=== PATIENT | male | born 1950 | race African-American/Black ===

== ENCOUNTER 2017-06-08 15:06 | Emergency (ER) | payer MEDICARE ==
--- NOTE | 2017-06-08 17:42 | XRay Report ---
FINAL REPORT EXAM: XR CHEST 1V AP HISTORY: SOB TECHNIQUE: AP portable view of the chest PRIORS: None. FINDINGS: Lines, tubes, and devices: Median sternotomy wires and surgical clips are noted. Plate and screw device is in the lower cervical spine are present. Lungs and pleura: Trachea is normal in position. Lungs are clear of infiltrate, pleural effusion, vascular congestion, or pneumothorax. Cardiomediastinal silhouette: Cardiac and mediastinal silhouettes are unremarkable. Calcification of the aortic arch is noted. Other: Bony structures are intact. IMPRESSION: No acute cardiopulmonary process seen.
[2017-06-08] MEDS ORDERED: DUONEB *Not for PRN Use IH ONE (18:08)
[2017-06-08 18:09] LABS: Hematocrit 43.4 % (35.5-45.6); Hemoglobin 14.9 gm/dl (11.8-15.2); Mean Corpuscular HGB Conc 34 % (32-34); Mean Corpuscular Hemoglobin 30 pg (28-32); Mean Corpuscular Volume 86 fl (84-94); Platelet Count 130 K/mm3 (140-440); Red Blood Count 5.04 M/mm3 (3.65-5.03); Red Cell Distribution Width 14.5 % (13.2-15.2)
[2017-06-08 18:28] LABS: Alanine Aminotransferase 32 units/L (7-56); Albumin 3.7 g/dL (3.9-5); BUN/Creatinine Ratio 18; Blood Urea Nitrogen 18 mg/dL (9-20); Calcium 8.7 mg/dL (8.4-10.2); Hemolysis Index 19
[2017-06-08 18:51] LABS: Band Neutrophils # (Manual) 0.1 K/mm3; Basophils % (Manual) 0 % (0.0-1.8); Eosinophils % (Manual) 0 % (0.0-4.3); Platelet Clumps Rare; Platelet Estimate Consistent w Auto; RBC Morphology Normal; Total Cells Counted 100
--- NOTE | 2017-06-08 19:00 | Emergency Department Report ---
ED Fall HPI - General Chief Complaint: Fall Stated Complaint: FALL Time Seen by Provider: 06/08/17 16:15 Source: family, EMS Mode of arrival: Stretcher - History of Present Illness Initial Comments: THE PATIENT FELL IN THE GARAGE. FAMILY MEMBERS NOTICED IT LATER IN THE EVENING AND ALSO TODAY. THERE WAS also SOME BIT OF BLEEDING FROM THE occiPITAL AREA OF THE HEAD. PATIENT WAS ALSO COMPLAINING OF A HEADACHE OF MILD TO MODERATE INTENSITY AND NONRADIATING WITH NO AGGRAVATING OR RELIEVING FACTOR. PATIENT HAS ALSO BEEN COMPLAINING OF SOME SHORTNESS OF BREATH AND COUGH WHICH IS OCCASIONALLY PRODUCTIVE. HE IS BEEN IN CONTACT WITH INDIVIDUALS THAT HAVE HAD FLULIKE SYMPTOMS recently. The patient did have a fever about 3 days ago. His flulike symptoms started about 3 days ago. He has no neck stiffness. History was limited by the patient's language difficulty however translation was done by his grandson. Patient is not exactly sure of the nature of his fall and is unsure whether he actually lost consciousness. MD Complaint: fall - Related Data Previous Rx's Medication Instructions Recorded Last Taken Type ALBUTEROL Inhaler [ProAir HFA 2 puff IH QID PRN #1 inhalation 06/08/17 Unknown Rx Inhaler] Amoxicillin/Potassium Clav 1 each PO BID 10 Days #20 tablet 06/08/17 Unknown Rx [Augmentin 875-125 Tablet] Allergies Allergy/AdvReac Type Severity Reaction Status Date / Time No Known Allergies Allergy Unverified 06/08/17 16:01 ED Review of Systems ROS: Stated complaint: FALL Other details as noted in HPI Comment: All other systems reviewed and negative ED Past Medical Hx - Past Medical History Hx Hypertension: Yes Hx CVA: Yes (R sided deficits) Additional medical history: hyperlipidemia - Surgical History Hx Open Heart Surgery: Yes Additional Surgical History: neck sx - Social History Smoking Status: Never Smoker Substance Use Type: None - Medications Home Medications: Home Medications Medication Instructions Recorded Confirmed Last Taken Type ALBUTEROL Inhaler [ProAir HFA 2 puff IH QID PRN #1 inhalation 06/08/17 Unknown Rx Inhaler] Amoxicillin/Potassium Clav 1 each PO BID 10 Days #20 tablet 06/08/17 Unknown Rx [Augmentin 875-125 Tablet] ED Physical Exam - General Limitations: Language Barrier General appearance: alert, in no apparent distress - Head Head exam: Present: normocephalic, other (abrasion of the occipital area of the head) - Eye Eye exam: Present: normal appearance Pupils: Present: normal accommodation - ENT ENT exam: Present: normal exam, mucous membranes moist. Absent: normal orophraynx - Neck Neck exam: Present: normal inspection - Respiratory Respiratory exam: Present: normal lung sounds bilaterally. Absent: respiratory distress - Cardiovascular Cardiovascular Exam: Present: regular rate, normal rhythm. Absent: systolic murmur, diastolic murmur, rubs, gallop - GI/Abdominal GI/Abdominal exam: Present: soft, normal bowel sounds. Absent: tenderness - Rectal Rectal exam: Present: deferred - Extremities Exam Extremities exam: Present: normal inspection, other (weakness of the right upper extremity due to prior CVA. Otherwise strength in all extremities is 5 over 5) - Back Exam Back exam: Present: normal inspection - Neurological Exam Neurological exam: Present: alert, oriented X3 - Psychiatric Psychiatric exam: Present: normal affect, normal mood - Skin Skin exam: Present: warm, dry, intact, normal color. Absent: rash ED Course Vital Signs 06/08/17 06/08/17 15:53 18:01 Temperature 98.8 F Pulse Rate 86 82 Respiratory 20 20 Rate Blood Pressure 140/78 Blood Pressure 146/89 [Left] O2 Sat by Pulse 97 96 Oximetry ED Medical Decision Making - Lab Data Result diagrams: 06/08/17 17:40 06/08/17 17:40 - EKG Data -: EKG Interpreted by Me Critical care attestation.: If time is entered above; I have spent that time in minutes in the direct care of this critically ill patient, excluding procedure time. ED Disposition Clinical Impression: Fall, Acute bronchitis, Chronic sinusitis Disposition: - TO HOME OR SELFCARE Is pt being admited?: No Does the pt Need Aspirin: No Condition: Stable Instructions: Acute Bronchitis (ED), Sinusitis (ED) Additional Instructions: Use [id number] saline nasal rinse for nasal congestion. Increase fluid intake. Prescriptions: ALBUTEROL Inhaler [ProAir HFA Inhaler] 2 puff IH QID PRN #1 inhalation PRN Reason: Shortness Of Breath Amoxicillin/Potassium Clav [Augmentin 875-125 Tablet] 1 each PO BID 10 Days #20 tablet Referrals: PRIMARY CARE, [Primary Care Provider] - 2-3 Days Time of Disposition: 19:25 Print Language: PERSIAN
[2017-06-08 19:01] VITALS: BP 146/89
[2017-06-08] MEDS ORDERED: K-DUR PO ONE (19:03)
--- NOTE | 2017-06-08 19:12 | Cat Scan Report ---
FINAL REPORT EXAM: CT HEAD/BRAIN WO CON HISTORY: head trauma TECHNIQUE: Standard unenhanced CT of the head at 5.0 millimeter axial increments. PRIORS: None. FINDINGS: There is moderate cerebral and mild cerebellar atrophy. Symmetrical basilar ganglia calcification is noted. There is a remote area of encephalomalacia in the left occipital lobe with ballooning of the left occipital horn. There is also a remote area of infarct in the medial right occipital lobe and in the high left frontal parietal junction. There is no evidence for mass lesion, mass effect, midline shift, acute intracranial hemorrhage, or acute ischemia/ infarction. No evidence for acute skull fracture is seen. No abnormality in the overlying scalp soft tissues is seen. Visualized paranasal sinuses demonstrates opacification of the left sphenoid sinus. Mucosal thickening in several bilateral ethmoid sinuses is noted. IMPRESSION: 1. moderate cerebral and mild cerebellar atrophy. 2. multiple areas of encephalomalacia and infarct appear remote. 3. no acute intracranial process noted. 4. Chronic sinusitis
== END 2017-06-08 20:12 | disposition home or self-care (01) ==
LOC: ED 15:06
DX: S00.81XA Abrasion of other part of head, initial encounter (principal); J20.9 Acute bronchitis, unspecified; J32.9 Chronic sinusitis, unspecified; Z86.73 Personal history of transient ischemic attack (TIA), and cerebral infarction without residual deficits; I10 Essential (primary) hypertension; E78.5 Hyperlipidemia, unspecified; W17.89XA Other fall from one level to another, initial encounter; Y93.89 Activity, other specified; Y92.89 Other specified places as the place of occurrence of the external cause; Y99.8 Other external cause status
CPT/HCPCS: 36415; 70450; 71045; 80053; 85007; 85025; 93005; 93010; 94640